=== PATIENT | male | born 1970 | race Caucasian/White ===

== ENCOUNTER → 2018-03-01 | Outpatient (CLI) | payer OTHER ==
[~2018-03-01] MED LIST: ANAPROX DS550 MG PO; CLARITIN10 MG PO; CYCLOBENZAPRINE5 M3 PO; MEDROL DOSEPAK4 MG PO; NORCO 5-325 TA1 EACH PO; SEPTRA DS 800 M1 TAB PO
== END | disposition home or self-care (01) ==
LOC: RAD 08:57
DX: K21.9 Gastro-esophageal reflux disease without esophagitis (principal)

== ENCOUNTER → 2018-04-03 | Outpatient (CLI) | payer OTHER | END | disposition home or self-care (01) | LOC: RAD 15:31 | DX: R05 Cough (principal); R06.02 Shortness of breath; I10 Essential (primary) hypertension; E66.9 Obesity, unspecified; Z87.891 Personal history of nicotine dependence ==

== ENCOUNTER → 2018-11-09 | Outpatient (CLI) | payer OTHER | END | disposition home or self-care (01) | LOC: MRI 13:46 | DX: M48.061 Spinal stenosis, lumbar region without neurogenic claudication (principal); M47.896 Other spondylosis, lumbar region; F17.200 Nicotine dependence, unspecified, uncomplicated ==

== ENCOUNTER 2024-06-21 13:24 | Emergency (ER) | payer OTHER ==
[~2024-06-21] VITALS: Ht 177.8 cm; Wt 147.4 kg
[2024-06-21] MEDS ORDERED: Albuterol Sulf/Ipratropium 3 ML VIAL NEB ONE (13:45)
[2024-06-21] MEDS ORDERED: methylPREDNISolone sod succ 125 MG VIAL IV ONE (13:45)
[2024-06-21 13:57] LABS: BASO # 0.1 10*3/uL (0.0-0.1); BASO % 0.5 % (0.0-1.0); EOS % 0.2 % (1.0-4.0); HEMATOCRIT 39.8 % (42.0-52.0); LYMPH # 0.6 10*3/uL (1.3-4.4); MEAN CELL VOLUME 87.3 fl (80.0-94.0); MEAN CORPUSCULAR HGB CONC 30.9 g/dl (33.0-37.0); MEAN PLATELET VOLUME 9.7 fl (9.6-12.3); MONO # 0.4 10*3/uL (0.1-1.0); MONO % 4.2 % (3.0-9.0); NEUT # 8.9 10*3/uL (2.3-7.9); NEUT % 86.6 % (47.0-73.0); PLATELET COUNT AUTOMATED 269 10*3/uL (130-400); RED BLOOD COUNT 4.56 10*6/uL (4.50-5.90); RED CELL DISTRI WIDTH 17.2 % (0-14.5); WHITE BLOOD COUNT 10.2 10*3/uL (4.8-10.8)
[2024-06-21 14:15] LABS: ALKALINE PHOSPHATASE 116 U/L (46-116); BUN 10 mg/dl (9-23); CHLORIDE 107 mmol/L (98-107); POTASSIUM 3.8 mmol/L (3.4-5.1); SGPT/ALT 10 U/L (5-49); TOTAL PROTEIN 7.4 gm/dL (6.0-8.0)
[2024-06-21] MEDS ORDERED: ASPIRIN, CHEWABLE 81 MG TAB PO ONE (14:20)
[2024-06-21] MEDS ORDERED: ATORVASTATIN CALCIUM 80 MG TAB PO SCH (14:20)
[2024-06-21] MEDS ORDERED: HEPARIN SODIUM 25,000 UNITS/250 ML BAG IV SCH (14:20)
[2024-06-21] MEDS ORDERED: Metoprolol Tartrate 25 MG TAB PO SCH (14:20)
[2024-06-21] MEDS ORDERED: SODIUM CHLORIDE 0.9% 100 ML BAG IV ONE (15:50)
[2024-06-21] MEDS ORDERED: IOHEXOL 350 MG/ML 100 ML VIAL IV ONE ×2 (15:50→16:04)
[2024-06-21] MEDS ORDERED: SODIUM CHLORIDE 0.9% 100 ML IV ONE (16:04)
[2024-06-22 02:46] LABS: HEMATOCRIT 41.1 % (42.0-52.0); MEAN CELL VOLUME 89.2 fl (80.0-94.0); MEAN CORPUSCULAR HGB 26.2 pg (27.0-31.0); MEAN CORPUSCULAR HGB CONC 29.4 g/dl (33.0-37.0); MEAN PLATELET VOLUME 9.8 fl (9.6-12.3); PLATELET COUNT AUTOMATED 269 10*3/uL (130-400); RED BLOOD COUNT 4.61 10*6/uL (4.50-5.90); RED CELL DISTRI WIDTH 17.2 % (0-14.5); WHITE BLOOD COUNT 7.6 10*3/uL (4.8-10.8)
[2024-06-22 02:52] LABS: MANUAL DIFF REFLEX YES
[2024-06-22 03:06] LABS: BUN 14 mg/dl (9-23); CHLORIDE 107 mmol/L (98-107)
[2024-06-22 03:08] LABS: PLATELET SUFFICIENCY NORMAL (NORMAL); TOTAL CELLS COUNTED 100 #CELLS
[2024-06-22 03:10] LABS: POTASSIUM 4.9 mmol/L (3.4-5.1)
[2024-06-22] MEDS ORDERED: FUROSEMIDE 20 MG/2 ML VIAL IV ONE (12:05)
[2024-06-22] MEDS ORDERED: NITROGLYCERIN 1 IN PACKET T ONE (12:05)
== END 2024-06-22 17:20 | disposition short-term general hospital (02) ==
LOC: ED 13:24
PROVIDERS: Internal Medicine
DX: I21.4 Non-ST elevation (NSTEMI) myocardial infarction (principal); I10 Essential (primary) hypertension; F17.200 Nicotine dependence, unspecified, uncomplicated

== ENCOUNTER 2024-10-13 06:09 | Emergency (ER) | payer OTHER ==
[~2024-10-13] VITALS: Ht 177.8 cm; Wt 144.2 kg
[2024-10-13] MEDS ORDERED: Pantoprazole Sodium 40 MG VIAL IV ONE (06:15)
[2024-10-13] MEDS ORDERED: LASIX20 MG PO (06:33)
[2024-10-13] MEDS ORDERED: ENTRESTO 49 MG1 EACH PO (06:34)
[2024-10-13] MEDS ORDERED: BRILINTA90 M1 PO (06:34)
[2024-10-13] MEDS ORDERED: METOPROLOL SUCC25 M2 PO (06:34)
[2024-10-13] MEDS ORDERED: FUROSEMIDE40 MG PO (06:35)
[2024-10-13] MEDS ORDERED: IMDUR SA30 MG PO (06:35)
[2024-10-13] MEDS ORDERED: ALDACTONE25 MG PO (06:35)
[2024-10-13] MEDS ORDERED: JARDIANCE10 MG PO (06:35)
[2024-10-13] MEDS ORDERED: ASPIRIN ADULT L81 M1 PO (06:35)
[2024-10-13] MEDS ORDERED: ROSUVASTATIN CA40 MG PO (06:36)
[2024-10-13 06:39] LABS: HEMATOCRIT 24.2 % (42.0-52.0); MEAN CELL VOLUME 94.5 fl (80.0-94.0); MEAN CORPUSCULAR HGB 29.7 pg (27.0-31.0); MEAN CORPUSCULAR HGB CONC 31.4 g/dl (33.0-37.0); MEAN PLATELET VOLUME 10.1 fl (9.6-12.3); NUCLEATED RED BLOOD CELL 0.2 % (0.0-0.0); PLATELET COUNT AUTOMATED 324 10*3/uL (130-400); RED BLOOD COUNT 2.56 10*6/uL (4.50-5.90); RED CELL DISTRI WIDTH 16.5 % (0-14.5); WHITE BLOOD COUNT 17.5 10*3/uL (4.8-10.8)
[2024-10-13 06:53] VITALS: BP 75/28
[2024-10-13 06:53] LABS: MANUAL DIFF REFLEX YES
[2024-10-13] MEDS ORDERED: SODIUM CHLORIDE 0.9% 500 ML IV ONE (06:53)
[2024-10-13 06:59] LABS: ALKALINE PHOSPHATASE 67 U/L (46-116); BUN 51 mg/dl (9-23); CHLORIDE 102 mmol/L (98-107); POTASSIUM 4.2 mmol/L (3.4-5.1); SGPT/ALT 13 U/L (5-49); TOTAL PROTEIN 5.6 gm/dL (6.0-8.0)
[2024-10-13 07:02] VITALS: BP 85/61
[2024-10-13] MEDS ORDERED: Pantoprazole Sodium 40 MG in SODIUM CHLORIDE 0.9% 50 ML IV SCH (07:30)
[2024-10-13] MEDS ORDERED: SODIUM CHLORIDE 0.9% 1,000 ML IV ONE (07:40)
[2024-10-13 07:41] LABS: TOTAL CELLS COUNTED 100 #CELLS
[2024-10-13 07:42] LABS: OVALOCYTES FEW; PLATELET SUFFICIENCY NORMAL (NORMAL); POLYCHROMASIA SLIGHT
[2024-10-13] MEDS ORDERED: SODIUM CHLORIDE 0.9% 100 ML IV ONE (08:44)
== END 2024-10-13 09:10 | disposition short-term general hospital (02) ==
LOC: ED 06:09
PROVIDERS: Emergency Medicine
DX: K92.2 Gastrointestinal hemorrhage, unspecified (principal); I10 Essential (primary) hypertension; E78.00 Pure hypercholesterolemia, unspecified; R57.1 Hypovolemic shock; Z98.890 Other specified postprocedural states